=== PATIENT | female | born 2000 | race Two or more races ===

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

== ENCOUNTER 2021-07-14 20:05 | Emergency (ER) | payer BC ==
[2021-07-14] MEDS ORDERED: Ketorolac 60 MG/2 ML SDV IM ONE (21:27)
[2021-07-14] MEDS ORDERED: Amoxicillin/Clavulanate K 875-125 MG Tab PO ONE (21:27)
--- NOTE | 2021-07-14 21:28 | EDM.PDOC ---
ED HPI GENERAL MEDICAL PROBLEM - General Chief Complaint: ENT Problem Stated Complaint: DENTAL COMPLAINT Time Seen by Provider: 07/14/21 20:35 Source of Information: Reports: Patient, RN Notes Reviewed History Limitations: Reports: No Limitations - History of Present Illness INITIAL COMMENTS - FREE TEXT/NARRATIVE: Patient is a 21-year-old female presenting to the emergency department with complaints of left lower dental pain. Reports symptoms began on . She has been using Orajel, Tylenol, and ibuprofen. Reports she does get some relief with these medications after about an hour. Denies any fever, chills, nausea, or vomiting. Her dentist is Dr. Wick. Left Oral/Mouth Pain Score (Numeric/FACES): 10 - Related Data Allergies Allergy/AdvReac Type Severity Reaction Status Date / Time No Known Allergies Allergy Verified 07/14/21 20:13 Home Meds: Home Meds Amoxicillin/Clavulanate K [Augmentin 875-125 MG] 1 tab PO BID #13 tablet 07/14/21 [Rx] Naproxen [Naprosyn] 500 mg PO Q12HR 5 Days #10 tab 07/14/21 [Rx] Past Medical History - Past Health History Medical/Surgical History: Denies Medical/Surgical History Endocrine/Metabolic History: Reports: Obesity/BMI 30+ - Past Surgical History HEENT Surgical History: Reports: Myringotomy w Tube(s), Tonsillectomy Social & Family History - Tobacco Use Tobacco Use Status *Q: Never Tobacco User Second Hand Smoke Exposure: No - Caffeine Use Caffeine Use: Reports: Coffee, Energy Drinks, Soda - Recreational Drug Use Recreational Drug Use: No - Living Situation & Occupation Living situation: Reports: Single, with Family Occupation: Employed ([employer]) ED ROS ENT - Review of Systems Review Of Systems: Comprehensive ROS is negative, except as noted in HPI. ED EXAM, ENT - Physical Exam Exam: See Below Exam Limited By: No Limitations General Appearance: Alert, WD/WN, No Apparent Distress Mouth/Throat: Other (Slight erythema and swelling of the gums below tooth 19. No obvious fracture or dental carry.) Respiratory/Chest: No Respiratory Distress, Lungs Clear, Normal Breath Sounds, No Accessory Muscle Use, Chest Non-Tender Cardiovascular: Normal Peripheral Pulses, Regular Rate, Rhythm, No Edema, No Gallop, No JVD, No Murmur, No Rub Neurological: Alert, Oriented, CN II-XII Intact, Normal Cognition, Normal Gait, Normal Reflexes, No Motor/Sensory Deficits Psychiatric: Normal Affect, Normal Mood Skin: Warm, Dry, Intact, Normal Color, No Rash Course - Vital Signs Last Recorded V/S: Last Vital Signs Temp 96.9 F 07/14/21 20:12 Pulse 100 07/14/21 20:12 Resp 20 07/14/21 20:12 BP 177/85 H 07/14/21 20:12 Pulse Ox 99 07/14/21 20:12 - Orders/Labs/Meds Meds: Medications Discontinued Medications Generic Name Dose Route Start Last Admin Trade Name Edgarq PRN Reason Stop Dose Admin Amoxicillin/Clavulanate Potassium 1 tab 07/14/21 21:27 07/14/21 21:44 Amoxicillin/Clavulanate K 875-125 Mg Tab PO 07/14/21 21:28 1 tab ONETIME ONE Administration Ketorolac Tromethamine 60 mg 07/14/21 21:27 07/14/21 21:44 Ketorolac 60 Mg/2 Ml Sdv IM 07/14/21 21:28 60 mg ONETIME ONE Administration - Re-Assessments/Exams Free Text/Narrative Re-Assessment/Exam: Patient is a 21-year-old female presenting to the emergency department with complaints of left lower dental pain since . She is been using [id number] Tylenol ibuprofen and Orajel which does provide some relief. On exam, there is mild erythema and swelling of the gums below tooth 19. No obvious abscess. I will order Toradol 60 mg IM as well as first dose of Augmentin to be given this evening. I will send prescription for Naprosyn and Augmentin. Recommend follow-up with dentist on Friday. Discharge instructions documented. Departure - Departure Time of Disposition: 21:44 Disposition: Home, Self-Care 01 Condition: Good Clinical Impression: Pain, dental - Discharge Information *PRESCRIPTION DRUG MONITORING PROGRAM REVIEWED*: No *COPY OF PRESCRIPTION DRUG MONITORING REPORT IN PATIENT ASAEL: No Prescriptions: Amoxicillin/Clavulanate K [Augmentin 875-125 MG] 1 tab PO BID #13 tablet Naproxen [Naprosyn] 500 mg PO Q12HR 5 Days #10 tab Instructions: Dental Pain Referrals: PCP,None [Primary Care Provider] - Forms: ED Department Discharge Additional Instructions: You were seen in the emergency department today for left lower dental pain. While in the ER, you received an injection of Toradol and your first dose of Augmentin. Prescription has been sent for naproxen and Augmentin. Take these medications as prescribed. Do not take ibuprofen in addition to the naproxen, however you may take Tylenol as needed. May continue to use your Orajel. Recommend contacting your dentist first thing Friday morning for follow-up. Return to ER as needed.
== END 2021-07-14 21:48 | disposition home or self-care (01) ==
LOC: JD.ED 20:05
DX: K08.89 Other specified disorders of teeth and supporting structures (principal); E66.9 Obesity, unspecified; Z68.43 Body mass index [BMI] 50.0-59.9, adult
CPT/HCPCS: 96372; 99282; A9270; J1885

== ENCOUNTER 2021-12-23 22:17 | Emergency (ER) | payer BC ==
[2021-12-23] MEDS ORDERED: Ketorolac 15 MG/ML SDV IM ONE (22:55)
[2021-12-23] MEDS ORDERED: Sodium Chloride 0.9% 10 ML SDV FLUSH ONE (23:36)
[2021-12-23] MEDS ORDERED: Iopamidol 612 MG/ML 50 ML SDV IVPUSH ONE (23:36)
[2021-12-23] MEDS ORDERED: Iopamidol 612 MG/ML 100 ML Bottle IVPUSH ONE (23:36)
[2021-12-24] MEDS ORDERED: Ondansetron 4 MG/2 ML SDV IVPUSH ONE (01:21)
== END 2021-12-24 01:45 | disposition home or self-care (01) ==
LOC: JD.ED 22:17
DX: N83.201 Unspecified ovarian cyst, right side (principal); K21.9 Gastro-esophageal reflux disease without esophagitis; E66.9 Obesity, unspecified; Z68.43 Body mass index [BMI] 50.0-59.9, adult
CPT/HCPCS: 36415; 74177; 76856; 80053; 81003; 81025; 83605; 83690; 85025; 96372; 96374; 99284; J1885; J2405; Q9967; 99285